=== PATIENT | female | born 1980 ===

== ENCOUNTER 2017-03-07 06:53 | Inpatient (IN) | payer MEDICAID ==
[2017-03-07 07:04] VITALS: BMI 37.2
[2017-03-07] MEDS: Lactated Ringer's 1,000 ML IV SCH ×3 (07:20→21:37)
[2017-03-07 07:37] LABS: BASO # 0.1 K/uL (0.0-0.2); BASO % 0.6 % (0.0-2.0); EOS # 0.1 K/uL (0.0-0.7); EOS % 1.4 % (0.0-4.0); HEMATOCRIT 37.5 % (34.0-47.0); LYMPH # 2.7 K/uL (1.0-4.3); LYMPH % 27.1 % (20.0-40.0); MEAN CELL VOLUME 79.8 fl (81.0-99.0); MEAN CORPUSCULAR HEMOGLOBIN 25.9 pg (27.0-31.0); MEAN CORPUSCULAR HGB CONC 32.5 g/dL (33.0-37.0); MEAN PLATELET VOLUME 9.7 fl (7.2-11.7); MONO # 0.7 K/uL (0.0-0.8); MONO % 7.2 % (0.0-10.0); NEUT # 6.4 K/uL (1.8-7.0); NEUT % 63.7 % (50.0-75.0); NRBC % 0.1 % (0.0-0.0); RED CELL DISTRIBUTION WIDTH 22.3 % (11.5-14.5)
[2017-03-07 07:53] LABS: ALKALINE PHOSPHATASE 188 U/L (38-126); ALT/SGPT 26 U/L (9-52); AST/SGOT 24 U/L (14-36); BILIRUBIN,TOTAL 0.5 mg/dl (0.2-1.3); BLOOD UREA NITROGEN 7 mg/dl (7-17); CALCIUM 9.1 mg/dL (8.4-10.2); CARBON DIOXIDE 19 mmol/L (22-30); CHLORIDE 108 mmol/L (98-107); GFR AFRICAN-AMERICAN > 60; GLUCOSE,RANDOM 82 mg/dL (65-105); POTASSIUM 4.1 MMOL/L (3.6-5.0); SODIUM 135 mmol/l (132-148); TOTAL PROTEIN 6.8 G/DL (6.3-8.2); URIC ACID 6.4 mg/Dl (2.2-7.5)
[2017-03-07] MEDS ORDERED: ceFAZolin 2 GM in Sodium Chloride 0.9% 100 ML IVPB ONE (08:30)
[2017-03-07] MEDS ORDERED: ePHEDrine 50 mg/ml Inj ONE ×2 (09:09→09:22)
--- NOTE | 2017-03-07 09:32 | OBHP ---
Datetime: 03/07/2017 08:05 IP Adm Impression: Term, intrauterine ; No Active Labor IP Chief Complaint Other: Schaduled C-sec IP Adm Impression Other: Breech; previous C/S x 1 IP Admit Plan: Admit to unit; Initiate Section protocol Admit Comment, IP Provider: CC: "" HPI: 36 YO 39 wks IUP presents to [facility] for schaduled . Pt has had a uncomplicated pr egnancy thus far. Denies LOC, ROM, VB, contractions, +FM. OBhx: pt had a in 2016 for preeclampsia. PMH: hypothyroidism, preclampsia in last SH: SH: , denies smoking, alcohol, drugs Allergies: iron pills, stomach ache Meds: levo 50mg, PNV, Iron O: Vit: BP elevated, fluids given GEN: NAD Cardio: S1S2, no M/G/R Resp: vesicualar breathing b/l abdomen: gravid, NT EXt: 1+ pitting edema, NT Cervix: closed FHM: 140, catagory I Assessment/Plan: 36 YO 35.2 wks IUP presents to [facility] for schaduled . Pt is GBS -, HI V- (third tri), HepB neg, GC neg (third tri). -admit to L_D for delivery -monitor baby, continue to observe -manage as ordered -monitor BP Q10 mins -cont IV fluids Beronica Bosch, PGY I OB Hospitalist note: This pt was seen and examined by me with PGY1...39w; previous C/S x 1; breech pres; hypothyroidism PLAN: admit and prep for C/S. Her questions were answered Pelvic Type - PN: Adequate Extremities - PN: Normal Abdomen - PN: Normal Back - PN: Not Done Breast - PN: Normal Lungs - PN: Normal Heart - PN: Normal Thyroid - PN: Normal Neurologic - PN: Normal HEENT - PN: Normal General - PN: Normal Presentation-Admit: Breech FHR - Baseline A Provider: 140 Membranes, Provider: Intact Comments, ACOG Physical Exam: ROS: General: no weakness; no fatigue HEENT: no COLEMAN; no visual dist CV: no palpitations; no no CP GI: no N/V no diarhea No epigastric pain; non radiating : no F/U/D MS: No joint pain IP Hx Assessment: The History has been Reviewed and is Current EGA AdmitDate IP: 39.2 Vital Signs Provider: Reviewed IP Indication for Induction: Not Applicable IP Chief Complaint: Other NICHD Variability Prov Fetus A: Moderate 6-25bpm NICHD Accel Fetus A IP Provider: 15X15 FHR Category Provider Fetus A: Category I Dilatation, Provider: closed Genitourinary Exam: Normal DTRs - PN: Not Done
[2017-03-07] MEDS ORDERED: Esmolol 100 mg/10ml Inj IV ONE (10:07)
[2017-03-07 10:41] LABS: RBC URINE < 1 /hpf (0-3); URINE BILIRUBIN NEGATIVE (NEGATIVE); URINE BLOOD NEGATIVE (NEGATIVE); URINE COLOR STRAW (YELLOW); URINE GLUCOSE (UA) NEG (Normal); URINE KETONE NEGATIVE (NEGATIVE); URINE LEUKOCYTE ESTERASE NEG Leu/uL (Negative); URINE PROTEIN NEGATIVE (NEGATIVE); URINE UROBILINOGEN 0.2-1.0 mg/dL (0.2-1.0); WBC URINE < 1 /hpf (0-5)
[2017-03-07] MEDS ORDERED: Oxytocin 30 units/LR 500ML 30 U/500 ML BAG IV SCH (10:45)
[2017-03-07] MEDS ORDERED: Oxycodone/Acetaminophen 5/325 mg Tab PO PRN ×2 (10:45→11:04)
--- NOTE | 2017-03-08 01:31 | OBDS ---
DELIVERY PERSONNEL Delivery Doctor: Gigi Mart MD Machine Hamper Maker: Coni Snell RN Anesthesiologist: Libby Kraft MD Resident: Kareen Bosch MATERNAL INFORMATION Delivery Anesthesia: Spinal Medications in Delivery: pitocin 20 unitsl/1L Estimated Blood Loss (ml): 650 Placenta Cultured: No Maternal Complications: None Provider Comments: preop dx: 39wks; previous cd; breech postop dx: same surgeon: faby medellin 1st asst: ricki 2nd asst: procedure: primary CD spinal anesthe dr kraft findings: clear amniotic fluid; double footling breech; male; 4390g [id number]_9 [id number]:[id number] path: none ballesteros to cath LABOR SUMMARY EDC: 03/12/2017 00:00 No. Babies in Womb: 0 Attempted: No Labor Anesthesia: None LABOR INFORMATION Reason for Induction: Not Applicable Oxytocin: N/A Group B Beta Strep: Negative Steroids Given: None Reason Steroids Not Administered: Not Applicable MEMBRANES Membranes Rupture Method: Artificial Rupture of Membranes: 03/07/2017 09:49 Length of Rupture (hrs): 0.00 Amniotic Fluid Color: Clear Amniotic Fluid Amount: Moderate Amniotic Fluid Odor: Normal STAGES OF LABOR Stage 3 hrs: 0 Stage 3 min: 1 CSECTION DELIVERY Primary Indication: Breech Presentation Secondary Indication: Repeat Elective CSection Urgency: Non Elective CSection Incidence: Repeat Labor: N/A Elective: Nonelective CSection Incision: Lower Uterine Transverse BABY A INFORMATION Infant Delivery Date/Time: 03/07/2017 09:49 Method of Delivery: Born in Route : No : N/A Forceps: N/A Vacuum Extraction: N/A Shoulder Dystocia : No SHOULDER DYSTOCIA BABY A Delivery Date/Time: 03/07/2017 09:49 PRESENTATION/POSITION BABY A Presentation: Breech Cephalic Presentation: N/A Breech Presentation: Double Footling PLACENTA INFORMATION BABY A Placenta Delivery Time : 03/07/2017 09:50 Placenta Method of Delivery: Expressed Placenta Status: Delivered SCORES BABY A Heart Rate 1 min: >100 bpm Resp Effort 1 min: Good Cry Reflex Irritability 1 min: Cough or Sneeze or Pulls Away Muscle Tone 1 min: Active Motion Color 1 min: Body [place], Extremities Blue SCORE 1 MIN: 9 Heart Rate 5 min: >100 bpm Resp Effort 5 min: Good Cry Reflex Irritability 5 min: Cough or Sneeze or Pulls Away Muscle Tone 5 min: Active Motion Color 5 min: Body [place], Extremities Blue SCORE 5 MIN: 9 INFORMATION BABY A Gestational Age at Delivery: 39.2 Gestational Status: Term Infant Outcome : Liveborn Condition : Stable Sex: Male IDENTIFICATION/MEDS BABY A ID Band Number: [id number] WEIGHT/LENGTH BABY A Infant Birthweight (gms): 4390 Weight (lb): 9 Infant Weight (oz): 11 CORD INFORMATION BABY A No. Cord Vessels: 3 Nuchal Cord : N/A Infant Suction: Mouth; Nose
[2017-03-08] MEDS: Lactated Ringer's 1,000 ML IV SCH (05:46)
[2017-03-08] MEDS: Oxycodone/Acetaminophen 5/325 mg Tab PO PRN (05:49)
[2017-03-08] MEDS: Levothyroxine 50 MCG TAB PO SCH (06:30)
[2017-03-08 08:56] LABS: HEMATOCRIT 31.5 % (34.0-47.0); MEAN CELL VOLUME 79.1 fl (81.0-99.0); MEAN CORPUSCULAR HEMOGLOBIN 26.7 pg (27.0-31.0); MEAN CORPUSCULAR HGB CONC 33.8 g/dL (33.0-37.0); RED CELL DISTRIBUTION WIDTH 22.3 % (11.5-14.5); WHITE BLOOD COUNT 10.5 K/uL (4.8-10.8)
[2017-03-09] MEDS: Levothyroxine 50 MCG TAB PO SCH (06:24)
--- NOTE | 2017-03-09 09:40 | OBPPN ---
Datetime: 03/09/2017 06:24 PP Pain Prov: Within normal limits PP Nausea Prov: Denies PP Flatus Prov: Yes PP BM Prov: Yes PP Heart Prov: Normal PP Lungs Prov: Normal PP Abdomen/Uterus Prov: Normal PP Vulva/Perineum Prov: Normal PP CVA Tenderness Prov: Normal PP Extremities Prov: Normal PP C/S Incision Prov: Normal PP Progress Prov: Normal PP Comments Phys Exam Prov: Lochia like menses pt is Tachycardic BP 144/90 PP Impression Prov: Normal progression PP Plan Prov: Continue present management PP Progress Note Prov: S: 36 yo s/p on 03/07/17 AT 9:49AM. Pt. is seen and examined at bedside this AM. No overnight events. Pt reports 4-6/10 abdominal pain, but controlled with pain med s.incision site looks normal. no nausea, advised to advance diet as tolerated. Breast feeding without difficulty. Lochia is similar to menses volume.. had Bowel movement, and passing gas per rectum. Den ies fever/chills, diarrhea, nausea/vomiting, chest pain, dyspnea, and dizziness. O: VS: HR 106. BP 144/90 GEN: NAD, seen baby Cardio: s1s2, no M/G/R Resp: clear breath sounds b/l Abdomen: BS+, tenderness to palpation. Incision scar noted, well healing no exudate seen, dry and intact. Uterus is firm and at the level of the umbilicus. EXT: No edema, calves nontender NEURO/PSYCHI: AAOx3, no grossly focal deficit, preserved affect and mood. Assessment/Plan: 36 yo s/p on 03/07/17 AT 9:49AM. Pt remains afebrile, tolerating pa in with medication, doing well on POD#2. SCDs for DVT prophylaxis, encouraged ambulating Percocet 5/325mg, and Ibuprofen 600mg for pain. Colace 100mg PO BID for constipation Encourage and ambulating CBC post op, 10.6/31.5 Tdap was given yesterday --- Jorgito Goins, PGY-1 OB Hospitalist note: This pt was seen and examined by me. Agree with above note. AMOL IP PP Procedures: None Vital Signs Provider PP: Reviewed; Within Normal Limits Datetime: 03/08/2017 05:20 PP Breasts Prov: Normal PP Lochia Prov: Normal
[2017-03-10] MEDS: Levothyroxine 50 MCG TAB PO SCH (05:56)
[2017-03-10] MEDS: Oxycodone/Acetaminophen 5/325 mg Tab PO PRN (08:14)
--- NOTE | 2017-03-10 08:45 | OBPPN ---
Datetime: 03/10/2017 06:15 PP Pain Prov: Within normal limits PP Nausea Prov: Denies PP Flatus Prov: Yes PP BM Prov: Yes PP Breasts Prov: Normal PP Heart Prov: Normal PP Lungs Prov: Normal PP Abdomen/Uterus Prov: Normal PP Lochia Prov: Normal PP Vulva/Perineum Prov: Normal PP CVA Tenderness Prov: Normal PP Extremities Prov: Normal PP C/S Incision Prov: Normal PP Progress Prov: Normal PP Impression Prov: Normal progression; Pain PP Plan Prov: Discharge PP Progress Note Prov: S: s/p POD#3,36 yo s/p on 03/07/17 AT 9:49AM. Pt. is seen and e xamined at bedside this morning, no c/o, pt looks better. Pt reports mild abdominal pain and tenderne ss, but controlled with pain meds. Incision site looks normal. Lochia is similar to menses volume. no nausea, had Bowel movement. O: VS: HR 106. BP 144/90 GEN: NAD, seen baby Cardio: s1s2, no M/G/R Resp: clear breath sounds b/l Abdomen: BS+, tenderness to palpation. Incision scar noted, well healing no exudate seen, dry and intact. Uterus is firm EXT: No edema, calves nontender NEURO/PSYCHI: AAOx3, no grossly focal deficit, preserved affect and mood. Assessment/Plan: 36 yo s/p on 03/07/17 AT 9:49AM. Pt remains afebrile, tolerating pa in with medication. POD#2 continue pain management Colace 100mg PO BID for constipation Encourage and ambulating CBC post op, 10.6/31.5 Tdap 03/08/17 pt is stable for D/c --- Jorgito Goins, PGY-1 BP 137/87 this AM OB Hospitalist note: This pt was seen and examined by me. Agree with above note. AMOL LA PP Procedures: None Vital Signs Provider PP: Reviewed; Within Normal Limits
--- NOTE | 2017-03-10 13:18 | OBDCSUM ---
Datetime: 03/10/2017 10:23 Discharged to, Provider: Home Follow up at, Provider: 6 weeks Disch Instr Activity: Normal activity Disch Instr Diet: Regular Discharge Instructions, Provider: Routine instructions given Discharge Diagnosis, Provider: Term Delivered Discharge Time: 03/10/2017 12:00 Disch Referrals: None Contraception discussed, Prov: Yes Disch Activity Restrictions: No lifting; No sexual activity; Nothing in vagina - [place], tampon s, douche Datetime: 03/10/2017 06:21 Discharged to, Provider: Home Follow up at, Provider: [facility] Disch Instr Activity: Normal activity Disch Instr Diet: Regular Discharge Instructions, Provider: Routine instructions given Discharge Diagnosis, Provider: Term Delivered Follow up in weeks, Provider: 03/14/17 Disch Referrals: None Contraception discussed, Prov: Yes Discharge Comment, Provider: DOA: 03/07/17 EGA: 39.2 Diagnosis: term PRisk factores: none summary of : L_D summary: 36 y/o F DOL: 03/07/17 at 9:49 NB: male : 03/31 Weight: 4390 PP summary: No serious complications during POD. Lochia= menses, mild pain, controlled with medications Rubella immune, Tdap 03/08/17 blood type: B+ CBC pp: 10.6/31.5 Discharge Date 03/10/17, time 10:00AM Discharge Instrucctions: -encourage -percocet/Ibuprofen for pain PRN -Colace -Ambulate as tolerated -Incision check on 03/14/17 -f/u NB visit and PP visit --- Jorgito Goins
--- NOTE | 2017-03-10 15:17 | CP.PCM.CON ---
History of Present Illness - History of Present Illness History of Present Illness: 36 yo female with history of preclampsia a year ago referred because of elevated BP 2 day via . Patient denied any complaint. She claimed last year her HTN was managed for less than a week with Labetalol and DC when her BP remained within normal range without it. Review of Systems - Review of Systems All systems: reviewed and no additional remarkable complaints except (aside from those mentioned above, 12 point system review were negative by me) Past Patient History - Tetanus Immunizations Tetanus Immunization: Unknown - Past Medical History & Family History Past Medical History?: No Past Family History: Reviewed and not pertinent - Past Social History Smoking Status: Never Smoked Alcohol: None - SURGICAL HISTORY Hx Section: Yes - ANESTHESIA Hx Anesthesia: Yes Hx Anesthesia Reactions: No Meds Home Medications: Home Medication List Medication Instructions Recorded Confirmed Type Docusate [Colace] 100 mg PO BID #30 cap 03/10/17 Rx Ibuprofen [Motrin Tab] 600 mg PO Q4H PRN #30 tab 03/10/17 Rx Levothyroxine [Synthroid] 50 mcg PO DAILY@0630 tab 03/10/17 Rx Metoprolol Tartrate [Lopressor] 25 mg PO BID #14 tab 03/10/17 Rx oxyCODONE/Acetaminophen [Percocet 1 tab PO Q4 PRN #20 tab 03/10/17 Rx 5/325 mg Tab] Allergies/Adverse Reactions: Allergies Allergy/AdvReac Type Severity Reaction Status Date / Time No Known Allergies Allergy Verified 11/08/15 14:05 - Medications Medications: Current Medications Acetaminophen (Tylenol 325mg Tab) 650 mg PO Q4H PRN PRN Reason: Pain, Mild (1-3) Docusate Sodium (Colace) 100 mg PO BID [facility] Last Admin: 03/10/17 09:19 Dose: 100 mg Ibuprofen (Motrin Tab) 600 mg PO Q4H PRN PRN Reason: Pain, Mild (1-3) Last Admin: 03/09/17 19:50 Dose: 600 mg Ketorolac Tromethamine (Toradol) 30 mg IVP Q6 PRN PRN Reason: Pain, moderate (4-7) Last Admin: 03/07/17 23:39 Dose: 30 mg Levothyroxine Sodium (Synthroid) 50 mcg PO DAILY@0630 [facility] Last Admin: 03/10/17 05:56 Dose: 50 mcg Physical Exam - Constitutional Appears: No Acute Distress - Head Exam Head Exam: ATRAUMATIC - Eye Exam Eye Exam: absent: Scleral icterus - ENT Exam ENT Exam: Mucous Membranes Moist - Neck Exam Neck exam: Negative for: Meningismus - Respiratory Exam Respiratory Exam: absent: Rhonchi, Wheezes, Respiratory Distress - Cardiovascular Exam Cardiovascular Exam: REGULAR RHYTHM, +S1, +S2 - GI/Abdominal Exam GI & Abdominal Exam: Soft. absent: Tenderness - Rectal Exam Rectal Exam: Deferred - Neurological Exam Neurological exam: Alert, Oriented x3 - Psychiatric Exam Psychiatric exam: Normal Affect - Skin Skin Exam: Dry, Intact Results - Vital Signs Recent Vital Signs: Last Vital Signs Temp 98.5 F 03/07/17 07:46 Pulse 110 H 03/10/17 14:31 Resp 17 03/07/17 07:46 BP 140/100 H 03/10/17 14:31 Pulse Ox - Labs Result Diagrams: 03/08/17 07:30 03/07/17 07:33 Assessment & Plan (1) HTN (hypertension) Status: Acute Comment: Lopressor 25mg PO BID, hold for SBP < 120 and HR <60. follow up with PCP in a week. monitor BP at home. low salt diet. BP went down from 160/110 to 145/90 after receiving 25mg of Lopressor PO
[2017-03-10 21:41] VITALS: BP 145/90; PULSE 89; RESP 20; TEMP 98.2; O2SAT 99
--- NOTE | 2017-03-13 12:09 | OP ---
DATE: 03/07/2017 PREOPERATIVE DIAGNOSES: 1. A 39 weeks gestation. 2. History of prior delivery. 3. Breech presentation. POSTOPERATIVE DIAGNOSES: 1. A 39 weeks gestation. 2. History of prior delivery. 3. Breech presentation. 4. Double-footling breech. PROCEDURE: Repeat low transverse section. SURGEON: Dr. Dieter Bustamante. DATA CAPTURE SPECIALIST: Dr. Nelson Pedroza. SECOND HATCH BOSS: PGAstrid Bosch. TYPE OF ANESTHESIA: Spinal. ANESTHESIOLOGIST: Dr. Villasenor. FINDINGS: Showed clear amniotic fluid, double footling breech presentation male. Infant with Apgars of 9 and 9 and a weight of 4390 grams. ESTIMATED BLOOD LOSS: 650 mL. COMPLICATIONS: None. PATHOLOGY AND SPECIMENS: None. DRAINS: Higginbotham catheter placed to drainage. DESTINATION: to nursery. The patient to recovery room in satisfactory condition. INDICATIONS: The patient is a 36-year-old female 3, para 1-0-1-1 who presented to labor and delivery for a repeat section. Current history is significant for a prior delivery x1 and a current breech presentation.. Risks, benefits, and indications were discussed with the patient and she agreed with planned procedure. PROCEDURE: The patient was taken back to the operating room with the IV running. She underwent a spinal anesthesia without complications. She was then placed in a dorsal supine position with a leftward tilt and prepped and draped in routine sterile fashion. A Pfannenstiel skin incision was made with a scalpel at the site of the old scar and this was carried down to the underlying rectus fascia which was incised in the midline and extended bilaterally. The inferior rectus facial edge was grasped with the Dannie and the underlying rectus muscle dissected off. The same procedure was performed along the superior rectus facial edge. The rectus muscle in the midline and peritoneum was identified, tented upward and incised superiorly and inferiorly. The bladder blade was placed and the bladder flap created using sharp and blunt dissection. A low uterine transverse incision was made with a knife and the uterine cavity was entered with the hemostatic, clear amniotic fluid was noted. The uterine incision was extended in a superior and inferior manner, digitally. Double-footling breech was noted as the presentation and the feet were grabbed and delivered through the uterine incision with the legs in extended manner. The was delivered in a routine fashion for a breech presentation. The cord was clamped and cut and mouth and nares were suctioned. Baby was handed off to the awaiting stockroom attendant. Cord blood was collected. The placenta was delivered spontaneously and intact. The uterus was exteriorized included all clots and debris. The uterine incision was re-approximated with 0-Vicryl in a running fashion followed by an imbricated stitch with 0 Monocryl. The uterus was inspected and good hemostasis confirmed. The abdomen was irrigated, cleared of all clots and debris. The uterus was returned to the abdomen. The uterine incision was reinspected. Good hemostasis confirmed. The gutters were cleared of all clots and debris. The peritoneum was re-approximated with 2-0 Vicryl running fashion. The muscle was re-approximated with 2-0 Vicryl in a running fashion. The fascia was re-approximated with 0-Vicryl in a running fashion begriming in the left lateral corner going to the midline and the other stitch the beginning in the right lateral corner going to the midline. Each suture was sequentially tied. Good hemostasis was confirmed. The subcutaneous tissue was re-approximated 2-0 plain in a simple interrupted fashion. The skin was closed with oliver. All sponge, lap, needle count were correct x4. The patient was returned to the recovery room in a satisfactory condition. Dr. Pedroza was my first certified surgical technician. He assisted in surgical entry, surgical exposure, hemostasis, delivery of baby and surgical closure. His assistance was essential to the completion of the procedure. Dieter Bustamante MD C[facility]
--- NOTE | 2017-03-21 07:21 | OBADHP ---
Datetime: 03/07/2017 08:05 IP Chief Complaint Other: Schaduled C-sec IP Adm Impression Other: Breech; previous C/S x 1 Admit Comment, IP Provider: CC: "" HPI: 36 YO 39 wks IUP presents to [facility] for schaduled for breech presentation. Pt coleman s had a uncomplicated thus far. Denies LOC, ROM, VB, contractions, +FM. OBhx: pt had a in 2016 for preeclampsia. PMH: hypothyroidism, preclampsia in last SH: SH: , denies smoking, alcohol, drugs Allergies: iron pills, stomach ache Meds: levo 50mg, PNV, Iron O: Vit: BP elevated, fluids given GEN: NAD Cardio: S1S2, no M/G/R Resp: vesicualar breathing b/l abdomen: gravid, NT EXt: 1+ pitting edema, NT Cervix: closed FHM: 140, catagory I Assessment/Plan: 36 YO 35.2 wks IUP presents to [facility] for schaduled for breech prese ntation. Pt is GBS -, HIV- (third tri), HepB neg, GC neg (third tri). -admit to L_D for delivery -monitor baby, continue to observe -manage as ordered -monitor BP Q10 mins -cont IV fluids Beronica Bosch, PGY I OB Hospitalist note: This pt was seen and examined by me with PGY1...39w; previous C/S x 1; breech pres; hypothyroidism PLAN: admit and prep for C/S. Her questions were answered Pelvic Type - PN: Adequate Extremities - PN: Normal Abdomen - PN: Normal Back - PN: Not Done Breast - PN: Normal Lungs - PN: Normal Heart - PN: Normal Thyroid - PN: Normal Neurologic - PN: Normal HEENT - PN: Normal General - PN: Normal Presentation-Admit: Breech FHR - Baseline A Provider: 140 Membranes, Provider: Intact Comments, ACOG Physical Exam: ROS: General: no weakness; no fatigue HEENT: no COLEMAN; no visual dist CV: no palpitations; no no CP GI: no N/V no diarhea No epigastric pain; non radiating : no F/U/D MS: No joint pain IP Hx Assessment: The History has been Reviewed and is Current Vital Signs Provider: Reviewed IP Chief Complaint: Other NICHD Variability Prov Fetus A: Moderate 6-25bpm NICHD Accel Fetus A IP Provider: 15X15 FHR Category Provider Fetus A: Category I Dilatation, Provider: closed Genitourinary Exam: Normal DTRs - PN: Not Done EGA AdmitDate IP: 39.2 IP Adm Impression: Term, intrauterine ; No Active Labor IP Admit Plan: Admit to unit; Initiate Section protocol
== END 2017-03-10 17:10 | disposition home or self-care (01) | DRG 370 ==
LOC: H.EROB2 06:53 → H.L&D 07:03 → H.OB/GYN 13:36
PROVIDERS: ADMIT Obstetrics & Gynecology; ATTEND Obstetrics & Gynecology
PROC: 10D00Z1 Extraction of Products of Conception, Low, Open Approach (ICD-10-PCS; principal; 2017-03-07)
PROC: 4A1HXCZ Monitoring of Products of Conception, Cardiac Rate, External Approach (ICD-10-PCS; 2017-03-07)
DX: O34.211 Maternal care for low transverse scar from previous cesarean delivery (principal); B20 Human immunodeficiency virus [HIV] disease; I10 Essential (primary) hypertension; O16.4 Unspecified maternal hypertension, complicating childbirth; O32.8XX0 Maternal care for other malpresentation of fetus, not applicable or unspecified; O99.284 Endocrine, nutritional and metabolic diseases complicating childbirth; E03.9 Hypothyroidism, unspecified; O34.219 Maternal care for unspecified type scar from previous cesarean delivery; N85.8 Other specified noninflammatory disorders of uterus; Z3A.39 39 weeks gestation of pregnancy; Z37.0 Single live birth; O98.72 Human immunodeficiency virus [HIV] disease complicating childbirth